=== PATIENT | female | born 1970 | race Two or more races ===

== ENCOUNTER 2020-06-16 06:20 | Outpatient (CLI) | payer OTHER | END 2020-06-16 06:30 | disposition home or self-care (01) | LOC: LAB 06:20 | PROVIDERS: ATTEND Internal Medicine Hematology & Oncology | DX: D50.8 Other iron deficiency anemias (principal); R79.89 Other specified abnormal findings of blood chemistry; I10 Essential (primary) hypertension; R74.02 Elevation of levels of lactic acid dehydrogenase [LDH]; K76.89 Other specified diseases of liver; D51.0 Vitamin B12 deficiency anemia due to intrinsic factor deficiency; D68.8 Other specified coagulation defects; D68.0 Von Willebrand disease; M17.12 Unilateral primary osteoarthritis, left knee; E06.3 Autoimmune thyroiditis ==

== ENCOUNTER 2020-09-08 06:17 | Outpatient (CLI) | payer OTHER | END 2020-09-08 06:39 | disposition home or self-care (01) | LOC: LAB 06:17 | PROVIDERS: ATTEND Internal Medicine Hematology & Oncology | DX: D68.8 Other specified coagulation defects (principal); D68.0 Von Willebrand disease; E06.3 Autoimmune thyroiditis; M17.12 Unilateral primary osteoarthritis, left knee; K80.20 Calculus of gallbladder without cholecystitis without obstruction ==

== ENCOUNTER 2020-12-07 06:15 | Day surgery (SDC) | payer OTHER ==
[~2020-12-07 06:15] MED LIST: DESMOPRESS10 MCG/0.2 IH; FERROUS SULF PO; SYNTHROID137 MCG PO; SYNTHROID150 MCG; VITAMIN B12 PO; VITAMIN D3 PO; [UNRECOGNIZED DRUG - OTHER] PO
[2020-12-07] MEDS ORDERED: PERCOCET 5-3251 EACH PO (11:15)
== END 2020-12-07 12:40 | disposition home or self-care (01) ==
LOC: CIR.AMB 06:15 → U 06:15 → CIR.AMB 09:00
PROVIDERS: ATTEND Orthopaedic Surgery
DX: S83.212A Bucket-handle tear of medial meniscus, current injury, left knee, initial encounter (principal); M65.862 Other synovitis and tenosynovitis, left lower leg; M94.262 Chondromalacia, left knee; Z20.822 Contact with and (suspected) exposure to COVID-19

== ENCOUNTER 2022-08-17 06:52 | Outpatient (CLI) | payer OTHER ==
[~2022-08-17 06:52] MED LIST changes: +PERCOCET 5-3251 EACH PO
== END 2022-08-17 07:06 | disposition home or self-care (01) ==
LOC: LAB 06:52
PROVIDERS: ATTEND Internal Medicine Hematology & Oncology
DX: D50.8 Other iron deficiency anemias (principal); R79.9 Abnormal finding of blood chemistry, unspecified; I10 Essential (primary) hypertension; R74.02 Elevation of levels of lactic acid dehydrogenase [LDH]; K76.89 Other specified diseases of liver; E55.9 Vitamin D deficiency, unspecified; D68.8 Other specified coagulation defects; D69.1 Qualitative platelet defects; D68.00 Von Willebrand disease, unspecified; D66 Hereditary factor VIII deficiency; E06.3 Autoimmune thyroiditis; M17.12 Unilateral primary osteoarthritis, left knee; K80.20 Calculus of gallbladder without cholecystitis without obstruction

== ENCOUNTER 2023-03-06 06:58 | Outpatient (CLI) | payer OTHER | END 2023-03-06 06:59 | disposition home or self-care (01) | LOC: LAB 06:58 | PROVIDERS: ATTEND Internal Medicine Hematology & Oncology | DX: D50.8 Other iron deficiency anemias (principal); R79.9 Abnormal finding of blood chemistry, unspecified; I10 Essential (primary) hypertension; R74.02 Elevation of levels of lactic acid dehydrogenase [LDH]; K76.89 Other specified diseases of liver; D51.8 Other vitamin B12 deficiency anemias; E55.9 Vitamin D deficiency, unspecified; D68.8 Other specified coagulation defects; D69.1 Qualitative platelet defects; E06.3 Autoimmune thyroiditis; M17.12 Unilateral primary osteoarthritis, left knee; K80.20 Calculus of gallbladder without cholecystitis without obstruction ==

== ENCOUNTER 2023-10-18 06:14 | Outpatient (CLI) | payer OTHER ==
[2023-10-18 07:50] LABS: HEMATOCRIT 40.7 % (36.0-45.00); HEMOGLOBIN 13.5 g/dL (12.0-15.00); MEAN CELL VOLUME 88.8 fL (80.00-100.00); MEAN CORPUSCULAR HEMOGLOBIN 29.3 pg (27.00-32.0); PLATELET COUNT 228 K/uL (150-450); RED BLOOD COUNT 4.59 M/uL (4.00-6.00); RED CELL DISTRIBUTION WIDTH 12.9 % (11.5-14.5)
[2023-10-18 08:14] LABS: INR 0.99; PARTIAL THROMBOPLASTIN TIME 30.1 SECONDS (22.0-34.0); PROTHROMBIN TIME 10.4 SECONDS (9.0-11.5)
[2023-10-18 08:36] LABS: ALBUMIN 3.5 gm/dL (3.4-5.0); BILIRUBIN TOTAL 0.5 mg/dL (0.3-1.2); CALCIUM 9.6 mg/dL (8.5-10.1); CREATININE SERUM 0.65 mg/dL (0.55-1.02); GFR 95.72; GLOBULINA 3.4 G/DL (2.4-3.5); POTASSIUM 4.36 mEq/L (3.5-5.1); TOTAL PROTEIN 6.9 gm/dL (6.4-8.2)
[2023-10-18 10:49] LABS: FOLIC ACID 14.33 ng/ml (4.78-20)
[2023-10-19 11:53] LABS: MANUAL PLATELET COUNT 386; PLATELET ESTIMATE NORMAL (NORMAL)
== END 2023-10-18 06:15 | disposition home or self-care (01) ==
LOC: LAB 06:14
PROVIDERS: ATTEND Internal Medicine Hematology & Oncology
DX: D68.01 Von Willebrand disease, type 1 (principal); E06.3 Autoimmune thyroiditis; M17.12 Unilateral primary osteoarthritis, left knee; K80.20 Calculus of gallbladder without cholecystitis without obstruction; R79.9 Abnormal finding of blood chemistry, unspecified; K76.89 Other specified diseases of liver; E55.9 Vitamin D deficiency, unspecified; I10 Essential (primary) hypertension; D68.8 Other specified coagulation defects; D50.8 Other iron deficiency anemias; R74.02 Elevation of levels of lactic acid dehydrogenase [LDH]

== ENCOUNTER 2025-01-09 06:16 | Outpatient (CLI) | payer OTHER ==
[2025-01-09 07:53] LABS: BASO % 0.5 % (0.1-1.2); EOS # 0.14 (0.04-0.54); EOS % 1.6 % (0.7-7.0); LYMPH # 1.56 (1.18-3.74); LYMPH % 17.6 % (19.3-53.1); MEAN PLATELET VOLUME 12.60 fl (9.4-12.4); MONO # 0.45 (0.24-0.82); MONO % 5.1 % (4.7-12.5); NEUT # 6.66 (1.56-6.13); NEUT % 74.9 % (34.0-71.1); RED CELL DISTRIBUTION WIDTH 12.9 % (11.6-14.4)
[2025-01-09 07:58] LABS: INR 0.97
[2025-01-09 08:22] LABS: ALT/SGPT 31.0 U/L (12-78); AST/SGOT 19.0 U/L (15-37); BILIRUBIN TOTAL 0.47 mg/dL (0.3-1.2); BUN CREA RATIO 20.0 (7.0-25.0); CREATININE SERUM 0.6 mg/dL (0.55-1.02); FE 45.0 ug/dl (50-170); GFR 104.18; GLOBULINA 3.4 G/DL (2.4-3.5); GLUCOSE FASTING 79.0 mg/dL (65-100); LDH 137.0 U/L (84-246); OSMOLALITY SERUM 282.0 MOSM/KG (275-295)
[2025-01-09 08:34] LABS: COL EPI 122 SECONDS (82-175)
[2025-01-09 09:20] LABS: FOLIC ACID 14.82 ng/ml (4.78-20)
[2025-01-09 13:18] LABS: MANUAL PLATELET COUNT 280
== END 2025-01-09 06:35 | disposition home or self-care (01) ==
LOC: LAB 06:16
PROVIDERS: ATTEND Internal Medicine Hematology & Oncology
DX: D68.01 Von Willebrand disease, type 1 (principal); E06.3 Autoimmune thyroiditis; M17.12 Unilateral primary osteoarthritis, left knee; K80.20 Calculus of gallbladder without cholecystitis without obstruction; D50.8 Other iron deficiency anemias; R79.9 Abnormal finding of blood chemistry, unspecified; K76.89 Other specified diseases of liver; R74.02 Elevation of levels of lactic acid dehydrogenase [LDH]; I10 Essential (primary) hypertension; E55.9 Vitamin D deficiency, unspecified; Z13.29 Encounter for screening for other suspected endocrine disorder; D68.8 Other specified coagulation defects; D69.1 Qualitative platelet defects; D68.00 Von Willebrand disease, unspecified